=== PATIENT | female | born 1985 | race Caucasian/White ===

== ENCOUNTER → 2017-12-14 10:58 | Outpatient (CLI) | payer MEDICAID, SELFPAY ==
[2017-12-17 07:20] LABS: HPV Reflexed? NOT INDICATED
== END ==
PROVIDERS: Visit Provider Obstetrics & Gynecology
DX: Z12.4 Encounter for screening for malignant neoplasm of cervix (principal)
CPT/HCPCS: 88175; G0145

== ENCOUNTER → 2017-12-28 11:52 | Outpatient (CLI) | payer MEDICAID, SELFPAY ==
--- NOTE | 2017-12-27 15:11 | FLU_PTH ---
PATIENT: SOFY CHRISTIAN LOC: [facility] U#:[id number] AGE/SX: 40/F ROOM: RE12/28/[address]: Dr. Arabella Ocampo MD : [id number] BED: DIS: SPEC #: [id number] RECD: 12/28/17 11:51 STATUS: ALLY DANNY #: [id number] GT: 12/27/17 15:[address]: Arabella Ocampo DEPT: CYTOLOGY RECD BY: José Luis Tomlinson Tissues: A - Thyroid gland, NOS B - Thyroid gland, NOS Procedures: Pap Stain (control) Special Stain Group II Surgery Specimen Level IV Cell Block Cytospin Fluid HEADER OPERATION: Ultrasound-guided fine needle aspiration of left thyroid PRE-OP DIAGNOSIS: Left thyroid nodule TISSUE SUBMITTED: A - FNA left thyroid fluid for cytology, B ? 4 slides DIAGNOSIS CYTOLOGY A. Fine needle aspiration, left thyroid nodule (cytospin and cell block): Negative for malignant cells. B. Fine needle aspiration, left thyroid nodule (smears): Adequate for evaluation. Negative, consistent with benign follicular nodule. AM:charito 12/29/17 COMMENT A. The specimen primarily contains blood and rare benign follicular cells. CYTOLOGY STUDY Slides are reviewed. CYTOLOGY GROSS A - Received is 30 ml of brown cloudy fluid labeled with the patient's name and and designated per the requisition as left thyroid. Submitted for cytology preparation including cell block. B - Received are four smears labeled with the patient's name and designated per the requisition as left thyroid. Submitted for staining. / 12/28/17 TC:5 CPT: 06823, 95196, 13647
== END ==
PROVIDERS: Visit Provider Surgery
DX: E04.1 Nontoxic single thyroid nodule (principal)
CPT/HCPCS: 88108; 88305; 88313

== ENCOUNTER 2018-12-02 17:35 | Emergency (ER) | payer MEDICAID, SELFPAY ==
[2018-12-02 17:38] VITALS: BP 144/86; PULSE 89; RESP 16; TEMP 37.1; O2SAT 99; BMI 31.4
--- NOTE | 2018-12-02 17:47 | CT_ITS ---
STUDY: CT FACIAL BONES WITHOUT CONTRAST REASON FOR EXAM: Female, 33 years old. Barbell struck jaw RADIATION DOSAGE (If Supplied By Facility): CTDIvol = ( 33.45 ) mGy, DLP = ( 645.88 ) mGycm TECHNIQUE: The patient was scanned in a multi detector CT scanner. Sagittal and coronal images were reconstructed. Individualized dose optimization techniques were used for this CT. COMPARISON: None. FINDINGS: There is soft tissue swelling anterior to the mandible. Small punctate density just left of midline on axial image 13 measures 2-3 mm. Normal orbital armas and orbital contents. Normal nasal bones and anterior nasal spine. Normal facial bones. There is no demonstrated fracture. Normal visualized paranasal sinuses. CT/Sinus/Facial Bone IMPRESSION: No maxillofacial fracture. Soft tissue swelling anterior to the mandible. Possible small foreign body. Electronically Signed: Lucio Lopez MD at 18:52 EST , Service support ,
--- NOTE | 2018-12-02 17:52 | ED.VISSUMM ---
- ER Visit Summary Date of Service: 12/02/18 Chief Complaint: Jaw pain. History of Present Illness: The patient is a 33 F presenting with jaw injury. Patient was doing a bench press. She was using an 85 pound barbell. She racked one side of the barbell in the rack and the other side slipped and then swung down and hit her in the jaw. She did not lose consciousness. No other injuries. Her tetanus is up-to-date. Physical Examination: Vitals are stable. Patient is afebrile. Alert no acute distress. HEENT exam diffuse tenderness and swelling of mandible. 1.5 cm laceration to chin. 1 cm laceration to inner lower lip. Laceration is not through and through. Front lower tooth chipped. Upper teeth malaligned. Neck is nontender Lungs are clear and equal bilaterally. Heart is regular rate and rhythm. Extremities are unremarkable. Skin is warm and dry. No focal neurologic deficit. Remainder of exam is unremarkable. Emergency Department Course and Treatment: She declined morphine. She was given Tylenol. CT facial bones shows no maxillofacial fracture. Soft tissue swelling anterior to the mandible. Possible small foreign body. Wound was copiously irrigated and explored. No foreign body visualized. Anesthetized with lidocaine. Closed with 2, 6-0 simple sutures. Patient tolerated this well. Advised wound care instructions. Advised to follow-up with primary care physician and Dr Luong. Advised return to ED for worsening complaints. Disposition: Discharge home Impression: Mandible contusion, chin laceration, laceration repair This note was generated with [employer] dictation software. It may contain incorrect words, spelling, and punctuation that were not noted in review of the chart prior to signing ED Disposition - Plan for ED Patient: Instructions: ED Laceration Facial Sutr Tape Prescriptions: Naproxen [Naprosyn] 500 mg PO BID PRN #20 tablet Referrals: Da Carpio DO [Primary Care Provider] - Nagi Chery DDS [STAFF PHYSICIAN] -
--- NOTE | 2018-12-02 17:55 | ED.DCSUM_ITS ---
- ER Visit Summary Date of Service: 12/02/18 Chief Complaint: Jaw pain. History of Present Illness: The patient is a 33 F presenting with jaw injury. Patient was doing a bench press. She was using an 85 pound barbell. She racked one side of the barbell in the rack and the other side slipped and then swung down and hit her in the jaw. She did not lose consciousness. No other injuries. Her tetanus is up-to-date. Physical Examination: Vitals are stable. Patient is afebrile. Alert no acute distress. HEENT exam diffuse tenderness and swelling of mandible. 1.5 cm laceration to chin. 1 cm laceration to inner lower lip. Laceration is not through and through. Front lower tooth chipped. Upper teeth malaligned. Neck is nontender Lungs are clear and equal bilaterally. Heart is regular rate and rhythm. Extremities are unremarkable. Skin is warm and dry. No focal neurologic deficit. Remainder of exam is unremarkable. Emergency Department Course and Treatment: She declined morphine. She was given Tylenol. CT facial bones shows no maxillofacial fracture. Soft tissue swelling anterior to the mandible. Possible small foreign body. Wound was copiously irrigated and explored. No foreign body visualized. Anesthetized with li docaine. Closed with 2, 6-0 simple sutures. Patient tolerated this well. Advised wound care instructions. Advised to follow-up with primary care physician and Dr Luong. Advised return to ED for worsening complaints. Disposition: Discharge home Impression: Mandible contusion, chin laceration, laceration repair This note was generated with [employer] dictation software. It may contain incorrect words, spelling, and punctuation that were not noted in review of the chart prior to signing ED Disposition - Plan for ED Patient: Instructions: ED Laceration Facial Sutr Tape Prescriptions: Naproxen [Naprosyn] 500 mg PO BID PRN #20 tablet Referrals: Da Carpio DO [Primary Care Provider] - Nagi Chery DDS [STAFF PHYSICIAN] -
[2018-12-02] MEDS: Acetaminophen 500 MG Tablet 1000 MG PO (18:09)
--- NOTE | 2018-12-02 19:49 | ED.DEP ---
ED Disposition - Plan for ED Patient: Instructions: ED Laceration Facial Sutr Tape Prescriptions: Naproxen [Naprosyn] 500 mg PO BID PRN #20 tablet Referrals: Da Carpio DO [Primary Care Provider] - Nagi Chery DDS [STAFF PHYSICIAN] -
[2018-12-02 19:57] VITALS: PULSE 58; RESP 15; O2SAT 98
== END 2018-12-02 20:22 | disposition home or self-care (01) ==
LOC: ED 18:48
PROVIDERS: Emergency Provider Emergency Medicine; Family Provider Student in an Organized Health Care Education/Training Program; PCP Student in an Organized Health Care Education/Training Program
DX: S01.81XA Laceration without foreign body of other part of head, initial encounter (principal); S01.511A Laceration without foreign body of lip, initial encounter; S02.5XXA Fracture of tooth (traumatic), initial encounter for closed fracture; S03.2XXA Dislocation of tooth, initial encounter; W20.8XXA Other cause of strike by thrown, projected or falling object, initial encounter; Y93.B3 Activity, free weights; Y92.9 Unspecified place or not applicable; Y99.9 Unspecified external cause status; Z79.899 Other long term (current) drug therapy
CPT/HCPCS: 12011; 70486; 99284; A4216; J2405

== ENCOUNTER 2019-01-26 09:49 | Emergency (ER) | payer MEDICAID, SELFPAY ==
[2019-01-26 09:50] VITALS: BP 132/74; PULSE 57; RESP 16; TEMP 36.6; O2SAT 98; BMI 29.8
--- NOTE | 2019-01-26 10:01 | ED.VISSUMM ---
- ER Visit Summary Date of Service: 01/26/19 Chief Complaint: Left ring finger injury/pain History of Present Illness: The patient is a 33 F who injured her left ring finger a week ago. She states that she smashed it between 2 weights at the gym. She states that initially had pain over the distal part of the finger and nail. It got better but now is getting worse over the past couple of days. She is having a drainage from under the nail. It is swollen. She states it feels hot. Pain is worse with movement. Physical Examination: Vital signs reviewed. Left ring finger reveals no drainage from under the nail. She has tenderness at the fingernail and finger pad. The finger pad is soft. No evidence of felon or paronychia. There is erythema to the proximal finger as well. There is no sausage digit. She is not holding it in flexion. Test Results: None performed Emergency Department Course and Treatment: The patient may have had a subungual hematoma that is now infected. It is already draining from underneath the nail according to the patient's I do not feel that a trephination is needed. There is no evidence of tenosynovitis. Patient has good range of motion. I will treat her with antibiotics. She will follow-up with her PCP Treatment Plan: [] Disposition: Discharge Impression: Left ring finger cellulitis This note was generated with [employer] dictation software. It may contain incorrect words, spelling, and punctuation that were not noted in review of the chart prior to signing ED Disposition - Plan for ED Patient: Referrals: Da Carpio DO [Primary Care Provider] -
--- NOTE | 2019-01-26 10:03 | ED.DEP ---
ED Disposition - Plan for ED Patient: Disposition: Home or Assisted Living Instructions: ED Infec Skin Cellulitis Prescriptions: Cephalexin [Keflex] 500 mg PO Q6 #28 cap Referrals: Da Carpio DO [Primary Care Provider] -
[2019-01-26 11:50] VITALS: BP 135/84; PULSE 51; RESP 14; O2SAT 100
[2019-01-26] MEDS: Cephalexin 250 MG Capsule 500 MG PO (11:53)
[2019-01-26 11:56] VITALS: BP 135/84; PULSE 46; RESP 14; O2SAT 100
== END 2019-01-26 11:57 | disposition home or self-care (01) ==
LOC: ED 10:51
PROVIDERS: Emergency Provider Emergency Medicine; Family Provider Student in an Organized Health Care Education/Training Program; PCP Student in an Organized Health Care Education/Training Program
DX: L03.012 Cellulitis of left finger (principal); E03.9 Hypothyroidism, unspecified; Z79.899 Other long term (current) drug therapy
CPT/HCPCS: 99282

== ENCOUNTER → 2019-02-06 15:32 | Outpatient (CLI) | payer MEDICAID, SELFPAY ==
[2019-01-26 09:50] VITALS: BMI 29.8
[2019-02-06 20:57] LABS: Chlamydia Trachomatis by PCR Negative (Negative); Neisserai gonorrhoeae by PCR Negative (Negative); Probe Check PASS; Sample Adequacy Control PASS; Specimen Processing Control PASS
[2019-02-09 16:34] LABS: HPV Reflexed? NOT INDICATED
== END ==
PROVIDERS: Visit Provider Obstetrics & Gynecology
DX: Z12.4 Encounter for screening for malignant neoplasm of cervix (principal); Z11.3 Encounter for screening for infections with a predominantly sexual mode of transmission
CPT/HCPCS: 87491; 87591; 88175; G0145

== ENCOUNTER → 2019-06-16 16:43 | Outpatient (CLI) | payer MEDICAID, SELFPAY ==
[2019-06-16 18:56] LABS: Chlamydia Trachomatis by PCR Negative (Negative); Neisserai gonorrhoeae by PCR Negative (Negative); Probe Check PASS; Sample Adequacy Control PASS; Specimen Processing Control PASS
== END ==
PROVIDERS: Referring Provider Obstetrics & Gynecology; Visit Provider Obstetrics & Gynecology
DX: Z11.3 Encounter for screening for infections with a predominantly sexual mode of transmission (principal); N39.0 Urinary tract infection, site not specified
CPT/HCPCS: 87086; 87088; 87491; 87591

== ENCOUNTER 2020-08-09 14:03 | Emergency (ER) | payer MEDICAID, SELFPAY ==
[2020-06-20 11:43] VITALS: BMI 29.8
[2020-08-09 14:04] VITALS: BP 149/69; PULSE 60; RESP 15; TEMP 36.4; O2SAT 98; BMI 32.3
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
== END 2020-08-09 15:18 | disposition home or self-care (01) ==
LOC: ED 15:10
PROVIDERS: Emergency Provider Emergency Medicine; PCP Student in an Organized Health Care Education/Training Program
DX: S60.221A Contusion of right hand, initial encounter (principal); V89.2XXA Person injured in unspecified motor-vehicle accident, traffic, initial encounter; Y93.9 Activity, unspecified; Y92.9 Unspecified place or not applicable; Y99.9 Unspecified external cause status; E66.9 Obesity, unspecified; Z79.899 Other long term (current) drug therapy; Z87.891 Personal history of nicotine dependence
CPT/HCPCS: 73110; 73130; 99281; 99283

== ENCOUNTER → 2020-11-25 12:18 | Outpatient (CLI) | payer MEDICAID, SELFPAY ==
[2020-11-15 08:01] VITALS: BMI 34.5
--- NOTE | 2020-11-25 12:21 | US_ITS ---
STUDY: ULTRASOUND OF THE FEMALE PELVIS - COMPLETE REASON FOR EXAM: Female, 35 years old. IUD PLACEMENT LMP: TECHNIQUE: Transabdominal and Transvaginal TECHNICAL QUALITY: Adequate. COMPARISON: None. FINDINGS: The uterus is anteverted and is in a midline position. The uterus measures 8.9 x 5.0 x 4.3 cm. Normal uterine cervix. The endometrium measures 7 mm in thickness, and is fluid distended. There is no demonstrated endometrial mass. There is no demonstrated myometrial mass. I.U.D. - The patient does have an I.U.D. The right ovary is visualized. The right ovary measures 4.1 x 4.0 x 3.0 cm. 2.8 cm dominant follicle the right ovary. There is no visualized right adnexal mass or complex lesion. There is normal arterial and normal venous vascularity. The left ovary is visualized. The left ovary measures 2.7 x 2.9 x 1.5 cm. There is no left ovarian cyst or ovarian mass. There is no visualized left adnexal mass or complex lesion. There is normal arterial and normal venous vascularity. There is no fluid in the cul-de-sac. The pre void volume of the bladder was ml. The post void volume of the bladder was ml. Polycystic ovary disease: No. US/Transvaginal Non- IMPRESSION: Intrauterine device within the endometrium with some endometrial fluid. Clinical correlation is recommended. Electronically Signed: Daron Schmitt MD at 16:58 EST Tel , Service support ,
== END ==
PROVIDERS: PCP Student in an Organized Health Care Education/Training Program; Referring Provider Obstetrics & Gynecology; Visit Provider Obstetrics & Gynecology
DX: T83.39XA Other mechanical complication of intrauterine contraceptive device, initial encounter (principal)
CPT/HCPCS: 76830

== ENCOUNTER 2021-01-29 13:20 | Outpatient (RCR) | payer MEDICAID, SELFPAY ==
[2020-11-15 08:01] VITALS: BMI 34.5
== END 2021-04-01 23:59 ==
LOC: IMMUN 13:20
PROVIDERS: PCP Student in an Organized Health Care Education/Training Program; Visit Provider Family Medicine
DX: Z23 Encounter for immunization (principal)
CPT/HCPCS: 0001A; 0002A; 91300

== ENCOUNTER 2025-01-24 14:14 | Emergency (ER) | payer OTHER, MEDICAID, SELFPAY ==
[2025-01-24 14:15] VITALS: BP 143/104; PULSE 71; RESP 18; TEMP 36.4; O2SAT 97; BMI 25.2
[2025-01-24 14:39] LABS: Absolute Neutrophil Count 4.7 X10^3/uL (2.0-7.7); Basophil# 0.05 X10^3/uL; Basophil% 0.7 % (0-1); Eosinophil# 0.19 X10^3/uL; Eosinophils% 2.6 % (0-5); Hematocrit 41.2 % (37-47); Hemoglobin 13.8 g/dL (12.0-15.0); Mean Corp Hgb Conc 33.5 g/dL (32-36); Mean Corpuscular Hgb 32.4 pg (27.0-32.0); Mean Corpuscular Volume 96.7 fL (81-99); Mean Platelet Vol. 10.6 fl (6.2-12.0); Monocyte# 0.92 X10^3/uL; Monocyte% 12.7 % (0-10); NRBC Flagged by Analyzer 0 % (0-5); Neutrophil # 4.74 X10^3/uL (2.7-7.7); Neutrophil % 65.7 % (47-70); Platelet Count 210 K/mm3 (150-450); RBC Distribution Width CV 12.3 % (11.6-14.6); RBC Distribution Width SD 43.8 fl (35.1-43.9); Red Blood Count 4.26 M/mm3 (4.2-5.4); White Blood Count 7.2 K/mm3 (4.4-11.0)
[2025-01-24 15:04] LABS: ALB/GLOB Ratio 1.5 RATIO (0.9-2.4); AST(SGOT) 25 U/L (<=31); Alanine Aminotransfer ALT/SGPT 21 U/L (<=34); Albumin, Serum 4.3 g/dL (3.5-5.0); Alkaline Phosphatase 48 U/L (35-104); Anion Gap 10 (5-15); BUN 16 mg/dL (4-19); BUN/Creat Ratio 23.1 RATIO (10-20); Calcium,Total 10.2 mg/dL (7.6-11.0); Carbon Dioxide 26.1 mmol/L (21.0-32.0); Chloride 101 mmol/L (98-108); Creatinine, Serum 0.71 mg/dL (0.70-1.20); EST Glomerular Filtration Rate 110 (>60); Globulin 2.8 g/dL (2.2-4.2); Glucose 94 mg/dL (70-99); Lipase 37 U/L (13-75); Potassium 4.5 mmol/L (3.3-5.1); Sodium Level 137 mmol/L (133-145); Total Bilirubin 0.36 mg/dL (0.00-1.30)
--- NOTE | 2025-01-24 15:33 | EDS_ITS ---
HPI History of Present Illness Chief Complaint: Nausea/Vomiting/Diarrhea [facility] Medical History (Updated 01/24/25 @ 15:42 by Delfina Chery) History of gastrectomy Umbilical hernia COVID-19 Foot fracture History of molar Hypothyroidism PCOS (polycystic ovarian syndrome) Home Medications ?Medication ?Instructions ?Recorded ?Last Taken ?Type bupropion HCl 75 mg tablet 75 mg PO BID 12/02/18 Unkno wn History levonorgestrel (Mirena) 1 device intrauterine ONCE 0 06/20/20 Unknown History levothyroxine 50 mcg tablet 88 mcg PO DAILY 06/20/20 U nknown History liothyronine 5 mcg tablet 15 mcg PO DAILY 06/20/20 Unk nown History metformin 500 mg tablet 500 mg PO BID 06/20/20 Unkno wn History dextroamphetamine-amphetamine 5 mg 1 tab PO DAILY PRN ADHD 01/24/25 Unknown History tablet fluoxetine 40 mg capsule 40 mg PO DAILY 01/24/25 Unkn own History lisdexamfetamine 10 mg capsule 10 mg PO DAILY 01/24/25 Unknown History (Vyvanse) lisdexamfetamine 30 mg capsule 30 mg PO 01/24/25 Unkno wn History (Vyvanse) ondansetron 4 mg disintegrating 4 mg PO Q8H PRN PRN Na usea #10 tabs 01/24/25 Unknown Rx tablet pantoprazole 40 mg tablet,delayed 40 mg PO DAILY 01/24 Unknown History release Allergy/AdvReac Type Severity Reaction Status Date / Time No Known Allergies Allergy Verified 01/24/25 14:15 Family History Mother Heart disease Myocardial infarction CAD (coronary artery disease) Grandmother Myocardial infarction Father CVA (cerebral vascular accident) Heart disease Diabetes CAD (coronary artery disease) Grandfather CVA (cerebral vascular accident) Grandmother Parkinson disease Surgical History H/O dilation and curettage H/O section Social History (Updated 11/15/20 @ 09:[address] Lolly Hodgson MD) household members: family number of children: 4 current occupational status: student Smoking Status: Former smoker second hand exposure: No alcohol intake: current alcohol intake frequency: holidays/special occasions only substance use type: does not use what type of physical activity do you participate in: other details: crossfit frequency: 5-6 times per week seatbelt use: always do you feel safe at home: Yes additional social history: Deepak EXAM Physical Exam Const Vital Signs: 01/24/25 14:15 01/24/25 15:40 01/24/25 16:15 Temperature 97.5 F L Temperature Source Temporal Pulse Rate 71 67 Respiratory Rate 18 18 Respiratory Pattern Normal Blood Pressure 143/104 H 102/90 H Blood Pressure Mean 117 94 Pulse Ox 97 97 Oxygen Delivery Method Room Air Room Air 01/24/25 18:00 Temperature Temperature Source Pulse Rate 67 Respiratory Rate 12 Respiratory Pattern Blood Pressure 112/77 Blood Pressure Mean 88 Pulse Ox 98 Oxygen Delivery Method Room Air MDM MDM MDM Narrative Medical decision making narrative: HISTORY OF PRESENT ILLNESS: Chief complaint: Nausea, vomiting, diarrhea fatigue 39-year-old female presents with new onset of nausea vomiting diarrhea and fatigue. She notes she had a gastrectomy procedure done in April 2024. She is worried that she is dehydrated. THe patient further states she has had no recent antibiotics. No recent travel. Notes she has had the symptoms off and on since her surgery in April. She notes she presented today because she soiled herself prior to arrival. She denies blood in her vomit or in her stool. She states she is vomited 3 times last 24 hours. She denies nausea currently. She notes she feels lethargic. Denies chest pain or shortness of breath. She still passing gas. She denies any urinary complaints. Denies any vaginal bleeding or discharge. REVIEW OF SYSTEMS: Pertinent positives: As per HPI Pertinent negatives: Blood in stool fluid PHYSICAL EXAM: Nursing triage notes reviewed, Vital signs reviewed Constitutional: please see mdm HENT: MMM Eyes: Pupils equal round and reactive to light, Extraocular muscles intact Neck: No stridor, no JVD, full neck ROM Lungs: Clear to auscultation, No wheezing or rales. No increased work of breathing, no conversational dyspnea, no accessory muscle use, no nasal flaring. No respiratory distress noted Heart: Regular rate and rhythm, No murmurs, No rubs and No gallops, 2+ distal pulses (radial, femoral, posterior tibial) in all extremities Abdomen: Soft, there is no tenderness, rigidity, rebound or guarding, no obvious peritoneal signs, no palpable pulsatile abdominal masses, no auscultated abdominal bruit : No CVAT Extremities: No edema Neuro: No new focal neurological deficits, cranial nerves II through XII intact, 5/5 strength in all present extremities. Intact sensation to light touch in all present extremities, 2+ reflexes bilateral patella tendons. Skin: No rash or lesions noted MEDICAL DECISION MAKING: Chief Complaint: please see HPI External records reviewed: Reviewed prior imaging studies: Clinisync reviewed. Factors affecting care: status post gastrectomy Social determinants of health: none History obtained from others: none Consults: none [facility] Narrative: The patient was initially hemodynamically stable, afebrile and nontoxic-appearing. There was mid abdominal/umbilical tenderness. There is no right upper quadrant tenderness is a negative Mathis sign I considered the following differential diagnosis: AAA, small bowel obstructio n, abdominal perforation, appendicitis, pancreatitis, hepatobiliary pathology (acute cholecystitis), mesenteric ischemia, pathology (ie nephrolithiasis, pyelonephritis), gastrectomy complication. ALL IMAGES (IF OBTAINED) HAVE BEEN PERSONALLY REVIEWED AND INTERPRETED BY MYSELF. CBC without leukocytosis, severe anemia, no thrombocytopenia. CMP without evidence of acute kidney injury, significant electrolyte abnormality, anion gap to suggest end organ hypo-perfusion, no evidence of metabolic acidosis with a normal bicarbonate, no evidence of hepatobiliary obstructive pathology. Lipase is wnl indicating no pancreatic inflammation. CT scan abdomen pelvis showed no evidence of obvious intra-abdominal surgery pathology, no obvious evidence of complication of recent gastrectomy Patient was reevaluated. Blood pressure improved 112/77. Repeat abdominal survey benign. Patient was able to tolerate p.o. She is discharged home with close follow with her surgeon as well as Damien. The patient and/or family, caregivers express understanding. The patient and/or family, caregivers agrees with the plan. Shared decision making: I will have a discussion with the patient and or visitors regarding risk/benefits of further testing or admission. They will be made aware of of the risk/benefits inherent in this decision they will be given the opportunity to voice understanding. Total critical care time today provided was at least 0 minutes. This excludes separately billable procedures. Critical care time (if documented) is secondary to the patient having high probability of clinically significant/life threatening deterioration in the patient's condition which required my urgent intervention. Impression: 1. Acute abdominal pain 2. Acute nausea, vomiting, and diarrhea 3. Status post gastrectomy Dispo: Discharge home This note was generated with Mango D[employer] dictation software. It may contain incorrect words, spelling, and punctuation that were not noted in review of the chart prior to signing. Lab Data Labs: Laboratory Results - last 24 hr 01/24/25 01/24/25 14:23 16:03 WBC 7.2 RBC 4.26 Hgb 13.8 Hct 41.2 MCV 96.7 MCH 32.4 H MCHC 33.5 RDW Std Deviation 43.8 RDW Coeff of Megha 12.3 Plt Count 210 MPV 10.6 Immature Gran % (Auto) 0.300 Neut % (Auto) 65.7 Lymph % (Auto) 18.0 L [place] % (Auto) 12.7 H Eos % (Auto) 2.6 Baso % (Auto) 0.7 Absolute Neuts (auto) 4.7 Absolute Lymphs (auto) 1.30 Nucleated RBC % 0 Sodium 137 Potassium 4.5 Chloride 101 Carbon Dioxide 26.1 Anion Gap 10 BUN 16 Creatinine 0.71 Estim Creat Clear Calc 101.40 Est GFR (MDRD) Non-Af 110 BUN/Creatinine Ratio 23.1 H Glucose 94 Calcium 10.2 Total Bilirubin 0.36 AST 25 ALT 21 Alkaline Phosphatase 48 Total Protein 7.0 Albumin 4.3 Globulin 2.8 Albumin/Globulin Ratio 1.5 Lipase 37 Urine Color Yellow Urine Clarity Clear Urine pH 6.0 Ur Specific [place] 1.015 Urine Protein Negative Urine Glucose (UA) Normal Urine Ketones 5 H Urine Occult Blood Negative Urine Nitrite Negative Urine Bilirubin Negative Urine Urobilinogen Normal Ur Leukocyte Esterase Negative Urine RBC 0 SEEN Urine WBC 0-5 SEEN Ur Squamous Epith Cells 0-5 SEEN Urine Bacteria 0 SEEN Urine Mucus 0 SEEN Urine Test Negative Radiography Diagnostic Testing: Clinical Impression(s) from Imaging Studies Abdomen/Pelvis CT 01/24/25 15:46 IMPRESSION: 1. No acute abdominopelvic finding. 2. Tiny nonobstructing bilateral lower pole renal calculi. Reading Location: [facility] Discharge Plan Triage Chief Complaint: Nausea/Vomiting/Diarrhea Other Complaint: Fatigue ED Provider: Bill Liao Dx/Rx/DC Orders Instructions: ED Diet Vomiting Diarrhea Prescriptions: New ondansetron 4 mg tablet,disintegrating 4 mg PO Q8H PRN PRN (Reason: Nausea) Qty: 10 0RF No Action liothyronine 5 mcg tablet 15 mcg PO DAILY metformin 500 mg tablet 500 mg PO BID Mirena 20 mcg/24 hours (5 yrs) 52 mg intrauterine device 1 device intrauterine ONCE Rx Instructions: as a single dose bupropion HCl 75 MG tablet 75 mg PO BID levothyroxine 50 mcg tablet 88 mcg PO DAILY dextroamphetamine-amphetamine 5 mg tablet 1 tab PO DAILY PRN (Reason: ADHD) fluoxetine 40 mg capsule 40 mg PO DAILY pantoprazole 40 mg tablet,delayed release (DR/EC) 40 mg PO DAILY lisdexamfetamine [Vyvanse] 30 mg capsule 30 mg PO lisdexamfetamine [Vyvanse] 10 mg capsule 10 mg PO DAILY Primary Care Provider: Da Carpio Referrals: Da Carpio, [Primary Care Provider] - Activity Restrictions/Additional Instructions: Thank you for trusting us with your care today! Your labs images were reassuring. Specifically no sign of significant dehydration, kidney damage. CT scan showed no evidence of bowel obstruction, perforation, acute surgical abnormality or issue with your recent gastrectomy. The cause your symptoms is unclear at this time however likely not life- threatening given your reassuring labs/images. Please take Zofran as needed for nausea vomiting control Please take Tylenol (2 pills, 650 mg), ibuprofen (2 pills, 400 mg) every 6 hours as needed for pain and fever control. Please return to the emergency department if your symptoms change or worsen. Please follow with your Surgeon for further outpatient evaluation and management. Print Language: Serbian Disposition Disposition: Home, Self Care
--- NOTE | 2025-01-24 15:46 | CT_ITS ---
PROCEDURE: ABDOMEN/PELVIS WITH CONTRAST 01/24/2025 REASON FOR EXAM: 39-year-old female, ABDOMINAL PAIN STATUS POST GASTRECTOMY TECHNIQUE: Abdomen and pelvis CT with intravenous contrast. Coronal and Sagittal reconstruction series were provided. PATIENT PREPARATION: Per protocol ORAL CONTRAST: Yes. CONTRAST: Isovue 370 VOLUME: 100 mL One or more dose reduction techniques were used (e.g., Automated exposure control, adjustment of the mA and/or kV according to patient size, use of iterative reconstruction technique. RADIATION DOSE SUMMARY: CTDlvol: 30 mGy DLP: 750 mGycm COMPARISON: None. FINDINGS: Lung bases: The lung bases are clear. The heart is normal in size with coronary artery calcifications. Liver: The liver is normal in size without focal hepatic mass. The major portal veins are patent. No biliary ductal dilation. Gallbladder: No radiopaque stones within the gallbladder. Spleen: Unremarkable. Pancreas: Unremarkable. Adrenals: Unremarkable. Kidneys: Tiny nonobstructing bilateral lower pole renal calculi. No hydronephrosis. Bladder: The urinary bladder is distended and unremarkable. Reproductive Organs: An IUD is present. Adnexal regions are unremarkable. Bowel: Contrast material opacifies the stomach and proximal small bowel. Suture material surrounding the stomach compatible with reported gastrostomy. The bowel loops are normal in caliber. No ascites or pneumoperitoneum. Normal appendix. Lymph nodes: No suspicious lymph node enlargement. Vasculature: Moderate calcific plaque of the aortoiliac vessels. Bones: No aggressive osseous lesions. Small fat containing umbilical hernia. CT/Abdomen/Pelvis WITH Contrast IMPRESSION: 1. No acute abdominopelvic finding. 2. Tiny nonobstructing bilateral lower pole renal calculi. Reading Location: [id number]
[2025-01-24] MEDS: Ondansetron 4 MG/2 ML Vial IV (16:00)
[2025-01-24] MEDS: 0.9% Normal Saline (1000mL) 1,000 ML 999 ML IV (16:00)
[2025-01-24] MEDS: Morphine 4 MG/ML Syringe IV (16:01)
[2025-01-24 16:15] VITALS: BP 102/90; PULSE 67; RESP 18; O2SAT 97
[2025-01-24 16:15] LABS: Bacteria 0 SEEN /hpf (None Seen); Mucous, Urine 0 SEEN /hpf (<or=2+); Red Blood Cells-Urine 0 SEEN /hpf (0-5)
[2025-01-24 16:18] LABS: Color, Urine Yellow (Yellow); Glucose, Dipstick Normal (Normal); Ketone-Dipstick 5 mg/dl (Negative); Leukocyte Esterase-Dipstick Negative /ul (Negative); Nitrite-Dipstick Negative (Negative); Occult Blood-Urine Negative /ul (Negative); Protein-Dipstick Negative (Negative); Specific Gravity, Urine 1.015 (1.002-1.030); Urine Bilirubin Dipstick Negative (Negative); Urine Clarity Clear (Clear); Urine Urobilinogen Normal (Normal)
[2025-01-24 16:30] LABS: Internal QC Validated? YES +Cl - CLEAR BKGD; Pregnancy, Urine Negative Negative; Squamous Epithelial Cells - UA 0-5 SEEN /hpf (5-10); White Blood Cells 0-5 SEEN /hpf (0-5)
[2025-01-24 18:00] VITALS: BP 112/77; PULSE 67; RESP 12; O2SAT 98
[2025-01-24 19:17] VITALS: BP 112/74; PULSE 80; RESP 12; TEMP 37.2; O2SAT 100
== END 2025-01-24 19:14 | disposition home or self-care (01) ==
PROVIDERS: Emergency Provider Emergency Medicine; PCP Student in an Organized Health Care Education/Training Program; Visit Provider Emergency Medicine
DX: R11.2 Nausea with vomiting, unspecified (principal); Z90.3 Acquired absence of stomach [part of]; R19.7 Diarrhea, unspecified; R10.33 Periumbilical pain; Z86.16 Personal history of COVID-19; Z87.891 Personal history of nicotine dependence
CPT/HCPCS: 74177; 80053; 81001; 81025; 83690; 85025; 96361; 96374; 96375; 99284; Q9967; A4216; J2405